=== PATIENT | male | born 1990 | race Caucasian/White ===

== ENCOUNTER 2018-06-21 03:26 | Emergency (ER) | payer OTHER ==
[~2018-06-21] VITALS: Ht 157.5 cm; Wt 59.4 kg
--- NOTE | ~2018-06-21 | EKG ---
[address] [address] ELECTROCARDIOGRAM REPORT Name: CARLO LOPEZ Room #: DEP [facility] [id number] Admission: 06/21/18 Attend Phys: Discharge: 06/21/18 Date of : 88 Report #: [id number] THIS REPORT FOR: //name// [facility] ED Test Date: 2018-06-21 Test Time: 03:48:41 Pat Name: CARLO CARMONA Department: Room: Gender: M Vest Maker: julio : 1990 Requested By: Ammon Yeager Order Number: [id number] MD: Jose F Corley Measurements Intervals Bath Rate: 74 P: 66 OK: 129 QRS: 32 QRSD: 97 T: 51 QT: 384 QTc: 426 Interpretive Statements Sinus rhythm No previous ECG available for comparison Electronically Signed On 06-21-2018 17:43:07 CDT by Jose F Corley [email or web address] <ELECTRONICALLY SIGNED> By: Jose F Corley MD 06/21/18 1743 [id number] MD RON Herman
[2018-06-21 03:27] VITALS: BP 152/86
== END 2018-06-21 04:25 | disposition home or self-care (01) ==
LOC: ER 03:26
DX: R06.02 Shortness of breath (principal); F17.210 Nicotine dependence, cigarettes, uncomplicated